=== PATIENT | male | born 1950 | race Caucasian/White ===

== ENCOUNTER 2019-06-05 09:16 | Outpatient (CLI) | payer MEDICARE, SELFPAY ==
--- NOTE | ~2019-06-05 | XR_ITS ---
XR abdomen/kub 1V DATE: 06/05/2019 09:43 INDICATION: Gross hematuria TECHNIQUE: AP projection, 2 views COMPARISON: 06/05/2019 CT abdomen pelvis FINDINGS: Calcified gallstones are noted overlying the right upper quadrant, confirmed on 06/15/2019 C T abdomen pelvis examination. The psoas shadows are intact. No visceromegaly is evident. No evidence of bowel obstruction. There is a moderately prominent of fecal material within the colon. Degenerative changes of the thoracic and lumbar spine. IMPRESSION: Calcified gallstones Reviewed, dictated and finalized at [facility]. Reviewed, dictated and finalized at location [facility]. IMPRESSION: Calcified gallstones
--- NOTE | ~2019-06-05 | CT_ITS ---
EXAMINATION: CT abdomen pelvis wo/w con DATE: 06/05/2019 10:11 INDICATION: Gross hematuria TECHNIQUE: Computed tomography (CT) of the abdomen and pelvis was performed without and subsequently with 130 cc Omnipaque 350 intravenous contrast. Automated exposure control and iterative reconstructi on technique were employed. Exam dose: 2305.83 mGy-cm total exam DLP. COMPARISON: 06/15/2019 KUB FINDINGS: Emphysematous changes are noted in the lower lung zones including prominent bullae in the r ight lower lobe. No infiltrate or consolidation at the lung bases. Normal heart size. No pericardial or pleural effusion. No hepatic, splenic, pancreatic space-occupying mass lesion. A very small left adrenal mass is sugges arminda, possibly a very small adenoma. At least a couple of small cysts are identified in each kidney. There are multiple calcified gallstones. No gallbladder wall thickening. No pericholecystic fluid or stranding. No bile duct or pancreatic duct dilatation. There are several small pancreatic calcificat ions, consistent with chronic pancreatitis. No urinary tract calculus or hydroureteronephrosis. Prostate enlargement and calcification. There is extensive calcification of the abdominal aorta and iliac arteries. No intraperitoneal or retroperitoneal or pelvic mass lesion or adenopathy or ascites. Diverticulosis of the colon. No bowel obstruction or intraperitoneal free air. There are bilateral L5 pars interarticularis defects with grade 1 anterolisthesis at L5-S1. There is moderately severe degenerative disc disease at L5-S1. Diffuse idiopathic skeletal hyperostosis of the lower thoracic spine. IMPRESSION: Emphysema Cholelithiasis Diverticulosis of the colon Small renal cysts Prostate enlargement and calcification Bilateral L5 pars interarticularis defects and grade 1 anterolisthesis as well as degenerative disc a t L5-S1 Reviewed, dictated and finalized at [facility]. Reviewed, dictated and finalized at location [facility]. IMPRESSION: Emphysema Cholelithiasis Diverticulosis of the colon Small renal cysts Prostate enlargement and calcification Bilateral L5 pars interarticularis defects and grade 1 anterolisthesis as well as degenerative disc at L5-S1
[2019-06-05 09:51] LABS: Estimated Glomerular Filt Rate > 60
== END 2019-06-05 09:17 | disposition home or self-care (01) ==
LOC: ANHIMG 09:17
PROVIDERS: PCP Family Medicine; Visit Provider Urology
DX: R31.0 Gross hematuria (principal); J43.9 Emphysema, unspecified; K80.20 Calculus of gallbladder without cholecystitis without obstruction; K57.90 Diverticulosis of intestine, part unspecified, without perforation or abscess without bleeding; N40.0 Benign prostatic hyperplasia without lower urinary tract symptoms; M43.10 Spondylolisthesis, site unspecified
CPT/HCPCS: 36415; 74018; 74178; Q9967

== ENCOUNTER 2020-09-23 08:44 | Outpatient (CLI) | payer MEDICARE, SELFPAY ==
--- NOTE | 2020-10-14 11:11 | WPDSLEEPSTUD ---
Sleep Study Date of Study: 09/23/20 Ordering Provider: Sigifredo Cuevas MD Interpreting Physician: Fransisca Wilder MD Sleep Study Type: Polysomnogram Height: 1.8 m Weight: 106.594 kg Body Mass Index: 32.8 Neck Circumference (inches): 19 [place]: 6 Reason for Sleep Study insomnia Sleep History Dottie Ruiz is a 70-year-old man who has difficulty falling asleep and staying asleep. This started around March,. In May, 4 days after his COVID vaccine he developed a head cold. Since then this has occurred almost nightly. About a week before this test, he started using a sleeping pill which helps himn get to sleep and stay asleep. he does not awaken from sleep feeling short of breath. He occasionally awakens at night with heartburn belching or coughing. He does not snore and does not snore loudly enough that others complain about it. He frequently has trouble sleeping when he has a cold. He does not wake up gasping for breath at night, does not have breathing problems reported to him by others while sleeping and he does not sweat excessively at night. He rarely notices his heart pounding or beating irregularly night. He frequently falls asleep during the day, frequently falls asleep involuntarily however never falls asleep while driving. He does not have loss of muscle tone with strong emotion. He does not have daytime difficulties due to excessive sleepiness. He does not feel paralyzed on waking or falling asleep. He rarely has vivid dreamlike scenes upon awakening or falling asleep. He does not feel afraid to go to sleep. He does not have nightmares. He occasionally remembers his dreams. He frequently has racing thoughts. He occasionally feels sad, depressed and anxious. He rarely has muscular tension. He rarely notices parts of his body jerking. He frequently kicks at night. He does not have crawling and aching feelings in his legs, does not have any kind of leg pain at night. He denies morning jaw pain. He does not grind his teeth during sleep. He did is not bothered by pain during the day. He is not awakened by pain at night. He occasionally wakes up feeling stiff the morning rarely with sore achy muscles and never awakens with pain in the neck and spine. He has fatigue. Normal bedtime is around midnight taking several hours to fall asleep typically waking 3 or 4 times during the night. During these awakenings sometimes he goes to the bathroom to urinate, otherwise he rolls over in tries to go back to sleep. He wakes between 7 and 8 in the morning. His weekend schedule is the same. He estimates getting between 6 and 7 hours of sleep at night he denies taking naps. A short nap is not refreshing. He is drowsy in the morning for 1 hour or longer. Habits: Tobacco less than 1 pack per day. Caffeine 2 diet Pepsi per day/diet green tea. No recreational drugs. [facility] Past Medical History Medical History BMI 33.0-33.9,adult BPH associated with nocturia Enlarged prostate without lower urinary tract symptoms (luts) Essential (primary) hypertension Hematuria Insomnia Mixed hyperlipidemia Type 2 diabetes mellitus without complications Family History Family History Father Family history of diabetes mellitus in first degree relative Family history of coronary artery disease Mother Family history of coronary artery disease Social History Social History Smoking end date: 03/29/16 Alcohol intake: current Medications Home Medications Medication Instructions Recorded Confirmed Type albuterol sulfate 90 mcg/actuation 2 puff INHALATION Q4H PRN #6.7 gm 02/08/19 09/17/20 Rx aerosol inhaler fluticasone fur. 100 mcg-umeclid 1 inhalation INHALATION DAILY #60 09/19/19 09/17/20 Rx 62.5 mcg-vilant 25 mcg each inhalat.powder finasteride
[2020-10-14 11:29] VITALS: BMI 32.8
== END 2020-09-24 06:38 | disposition home or self-care (01) ==
LOC: ANHCSM 08:45
PROVIDERS: PCP Family Medicine; Visit Provider Family Medicine
DX: G47.00 Insomnia, unspecified (principal); G47.33 Obstructive sleep apnea (adult) (pediatric)
CPT/HCPCS: 95806; 95810

== ENCOUNTER 2021-10-08 23:13 | Emergency (ER) | payer MEDICARE, SELFPAY ==
--- NOTE | ~2021-10-08 | XR_ITS ---
EXAMINATION: XR finger 5th LT min 2V DATE: 10/09/2021 01:14 INDICATION: Laceration of left hand fifth digit. TECHNIQUE: 3 views of left hand fifth digit were obtained. COMPARISON: None. FINDINGS: There is an oblique extra-articular fracture of fifth distal phalanx. The distal fracture f ragment demonstrates 1 mm palmar displacement. There is moderate osteoarthritis of fifth distal inter phalangeal joint. IMPRESSION: 1. Extra-articular oblique fracture of fifth distal phalanx. Reviewed, dictated and finalized at location [facility].
[2021-10-08 23:14] VITALS: BP 159/71; PULSE 81; RESP 16; TEMP 36.3; O2SAT 98
--- NOTE | 2021-10-09 01:07 | ED.WOUNDLAC ---
HPI - Wound/Laceration General Chief Complaint: Wound/Laceration Stated Complaint: laceration Time Seen by Provider: 10/09/21 00:29 Source: patient Mode of arrival: ambulatory Limitations: no limitations History of Present Illness HPI narrative: This is a 71-year-old male that presents to the emergency department for laceration of the left fifth finger sustained a couple of hours prior to arrival. Reports he was wearing a metal cabinet on a truck bed. He accidentally cut his left fifth finger. He is up-to-date on tetanus. Reports some tingling to the tip of the finger. Denies decreased range of motion or numbness. Related Data Allergies Allergy/AdvReac Type Severity Reaction Status Date / Time No Known Allergies Allergy Verified 07/24/21 07:43 Review of Systems Review of Systems: CONSTITUTIONAL: Denies fever SKIN: Reports laceration NEUROLOGIC: Denies numbness All systems reviewed & are unremarkable except as noted in HPI and below PMFSH Past Medical History Medical History (Updated 10/09/21 @ 02:45 by Briana Umana PA-C) BMI 29.0-29.9,adult BMI 32.0-32.9,adult BMI 33.0-33.9,adult BMI greater than 30 BPH associated with nocturia Enlarged prostate without lower urinary tract symptoms (luts) Erectile dysfunction Essential (primary) hypertension Hematuria Insomnia Mixed hyperlipidemia Type 2 diabetes mellitus without complications Family History Family History Father Family history of diabetes mellitus in first degree relative Family history of coronary artery disease Mother Family history of coronary artery disease Social History Social History Tobacco type: cigarettes Smoking end date: 03/29/16 Alcohol intake: current Exam Narrative: GENERAL: Well-appearing, well-nourished, and in no acute distress. HEAD: Normocephalic, atraumatic. EYES: EOMI. EXTREMITIES: Normal range of motion. No edema. Left fifth finger distal phalanx with 2 cm linear laceration into subcutaneous tissue over the palmar surface. Normal radial pulse SKIN: Warm, dry, no rash. NEURO: No focal deficits. Alert and oriented x3. PSYCH: Normal mood and affect Course Consultations Consultation #1: Spoke with Dr. Rosa about patient and workup, [facility] hand surgery. Patient will be given clinic number for follow-up Date: 10/09/21 Vital Signs Vital signs: Vital Signs Temperature 97.4 F L 10/08/21 23:14 Pulse Rate 81 10/08/21 23:14 Respiratory Rate 16 10/08/21 23:14 Blood Pressure 159/71 H 10/08/21 23:14 Pulse Oximetry 98 10/08/21 23:14 Temperature 97.4 F L 10/08/21 23:14 Pulse Rate 81 10/08/21 23:14 Respiratory Rate 16 10/08/21 23:14 Blood Pressure 159/71 H 10/08/21 23:14 Pulse Oximetry 98 10/08/21 23:14 Procedures Laceration Laceration 1: Date: 10/09/21 Time: 02:50 Site: hand Side (If applicable): left Size (cm): 2 Description: linear Depth: simple, single layer Local Anesthetic: lidocaine 1% Amount of anesthesia used (mL): 3 Pre-repair: wound explored and irrigated extensively ====== Skin Level ====== Skin layer closed with: nylon Size (cm): 4-0 Number of sutures: 5 Technique: simple, interrupted ====== Subcutaneous Layer ====== ====== Muscle Layer ====== ====== Tendon Layer ====== Orthopedic Splinting/Casting Injury #1: Splinting/Casting Date: 10/09/21 Splinting/Casting Time: 02:50 Side: left Upper Extremity Injury Location: finger Upper Extremity Immobilizer: finger (other) Splint: prefabricated Pre-Formed: metal foam finger splint Pre-Procedure Neuro Vascular Exam: normal Post-Procedure Neuro Vascular Exam: normal MDM - Wound/Laceration MDM Narrative Medical decision making narrative:
--- NOTE | 2021-10-09 03:27 | PC.NURSE ---
This RN never seen this patient because this RN was in a critical patients room and because of short staffing situation making it hard to see this patient.
--- NOTE | 2021-10-09 03:33 | PC.NURSE ---
THis RN gave discharge instructions to patient over the phone. Patient verbalized understanding of all discharge instructions and had all questions answered at this time.
== END 2021-10-09 03:30 | disposition home or self-care (01) ==
PROVIDERS: Emergency Provider Emergency Medicine; PCP Family Medicine
DX: S62.667B Nondisplaced fracture of distal phalanx of left little finger, initial encounter for open fracture (principal); I10 Essential (primary) hypertension; E78.2 Mixed hyperlipidemia; E11.9 Type 2 diabetes mellitus without complications; Z87.891 Personal history of nicotine dependence; W45.8XXA Other foreign body or object entering through skin, initial encounter
CPT/HCPCS: 12001; 29130; 73140; 99284

== ENCOUNTER 2023-06-14 10:09 | Outpatient (CLI) | payer MEDICARE, SELFPAY ==
--- NOTE | ~2023-06-14 | XR_ITS ---
Right Shoulder Technique: AP and scapular Y views were obtained. Clinical History: Pain Findings: No fracture or dislocation is seen. Osseous alignment is anatomic. There is moderate to adv anced AC joint degenerative change. Glenohumeral joint intact. Large calcific deposit the distal rota tor cuff is compatible with calcific tendinitis. Impression: Prominent calcific tendinitis, as above. Moderate to advanced AC joint degenerative change. Reviewed, dictated and finalized at location . Impression: Prominent calcific tendinitis, as above. Moderate to advanced AC joint degenerative change.
== END 2023-06-14 10:10 | disposition home or self-care (01) ==
PROVIDERS: PCP Family Medicine; Visit Provider Nurse Practitioner Adult Health
DX: M19.011 Primary osteoarthritis, right shoulder (principal)
CPT/HCPCS: 73030

== ENCOUNTER 2023-06-24 16:30 | Outpatient (CLI) | payer MEDICARE, SELFPAY ==
--- NOTE | ~2023-06-24 | MR_ITS ---
EXAMINATION: MR shoulder RT wo con DATE: 06/24/2023 17:54 INDICATION: Other instability, right shoulder. TECHNIQUE: Magnetic resonance imaging (MRI) of the right shoulder was performed without intravenous c ontrast. Sequences included axial PD-weighted FS FSE, coronal oblique PD-weighted FS FSE and T2-weigh arminda FS FSE, and sagittal oblique T2-weighted FS FSE and T1-weighted FSE. COMPARISON: Right shoulder radiographs 06/14/2023 FINDINGS: Coracoacromial arch: The acromion undersurface is curved in morphology (type II). There is severe acromioclavicular joint osteoarthritis. There is moderate subacromial/subdeltoid bursitis. Rotator cuff: There is a bursal-sided tear of supraspinatus tendon measuring 12 mm anterior to posterior by 21 mm a nterior to posterior by 50% tendon thickness. There is mild infraspinatus tendinopathy. Teres minor t endon is normal. There is mild subscapularis tendinopathy. There is no asymmetric fatty atrophy of th e rotator cuff muscle bellies. Biceps tendon and glenoid labrum: Biceps tendon is in bicipital groove. There is moderate intraarticular biceps tendinopathy. There is degenerative tearing of the glenoid labrum. Fluid: There is no glenohumeral joint effusion. Bones/cartilage: There is shallow partial-thickness cartilage loss of glenoid and humeral head. IMPRESSION: 1. Bursal-sided, partial-thickness tear of supraspinatus tendon. 2. Mild glenohumeral joint chondrosis. 3. Severe acromioclavicular joint osteoarthritis. 4. Moderate intra-articular biceps tendinopathy. 5. Moderate subacromial/subdeltoid bursitis. Reviewed, dictated and finalized at location A.
== END 2023-06-24 16:31 | disposition home or self-care (01) ==
LOC: ANHIMG 16:30
PROVIDERS: PCP Family Medicine; Visit Provider Nurse Practitioner Adult Health
DX: M25.311 Other instability, right shoulder (principal); S46.811A Strain of other muscles, fascia and tendons at shoulder and upper arm level, right arm, initial encounter; M94.8X1 Other specified disorders of cartilage, shoulder; M75.51 Bursitis of right shoulder; M19.011 Primary osteoarthritis, right shoulder
CPT/HCPCS: 73221

== ENCOUNTER 2023-09-24 07:36 | Outpatient (CLI) | payer MEDICARE, SELFPAY ==
--- NOTE | ~2023-09-24 | CT_ITS ---
EXAMINATION: CT sinus wo con DATE: 09/24/2023 08:01 INDICATION: Epistaxis. TECHNIQUE: Computed tomography (CT) of the paranasal sinuses was performed without intravenous contra st. Iterative reconstruction technique was employed. The dose-length product was 287.87 mGy-cm. COMPARISON: None FINDINGS: There is mucosal thickening in the frontal sinuses with total occlusion of the frontal rece sses. There is moderate mucosal thickening in the ethmoid sinuses and mild mucosal thickening in the sphenoid and right maxillary sinuses. There is moderate mucosal thickening in left maxillary sinus. T here is leftward deviation of anterior nasal septum and rightward deviation of posterior nasal septum . Left ostiomeatal unit is occluded. A thin line of mucus occludes right ostiomeatal unit. There is a patent secondary right maxillary ostium. IMPRESSION: 1. Mucosal thickening in the paranasal sinuses. 2. Leftward deviation of anterior nasal septum and rightward deviation of posterior nasal septum. Reviewed, dictated and finalized at location A. IMPRESSION: 1. Mucosal thickening in the paranasal sinuses. 2. Leftward deviation of anterior nasal septum and rightward deviation of poste rior nasal septum.
== END 2023-09-24 07:37 | disposition home or self-care (01) ==
PROVIDERS: PCP Family Medicine; Visit Provider Otolaryngology
DX: R04.0 Epistaxis (principal); J34.2 Deviated nasal septum
CPT/HCPCS: 70486

== ENCOUNTER 2023-10-26 17:02 | Emergency (ER) | payer MEDICARE, SELFPAY ==
--- NOTE | ~2023-10-26 | XR_ITS ---
EXAMINATION: XR chest 1V portable DATE: 10/26/2023 19:48 INDICATION: Epigastric discomfort TECHNIQUE: frontal view of the chest was obtained. COMPARISON: Chest radiograph dated 12/16/2015 FINDINGS: The lungs remain clear with no focal airspace opacities, pulmonary edema, pleural effusion or pneumot horax. The cardiomediastinal silhouette is normal. IMPRESSION: 1. No acute cardiopulmonary disease. Reviewed, dictated and finalized at location A.
--- NOTE | ~2023-10-26 | CT_ITS ---
EXAMINATION: CT abdomen pelvis w con DATE: 10/26/2023 20:36 INDICATION: Dyspnea. Nausea, vomiting and diarrhea. TECHNIQUE: Computed tomography (CT) of the abdomen and pelvis was performed with 100 mL Omnipaque-350 intravenous contrast. Automated exposure control and iterative reconstruction technique were employe d. The dose-length product was 727.75 mGy-cm. COMPARISON: 06/15/2019 FINDINGS: Emphysema in the lower lungs most prominent in the right lower lobe. No pneumonia, pulmonary edema or pleural effusion. Heart size is normal. No pericardial effusion. Calcified gallstones in the otherwi se normal-appearing gallbladder. Liver, spleen, pancreas and bilateral adrenal glands are normal. The re are few tiny bilateral low-attenuation renal cysts. Fluid in nondilated loops of small bowel and i n the proximal colon consistent with reported history of diarrhea. No abnormal bowel wall thickening or obstruction. Normal appendix. There are few sigmoid diverticula without adjacent inflammatory stra nding to suggest diverticulitis. Prostatomegaly measuring 6.0 x 5.8 cm . Partially decompressed bladd er is unremarkable. There are least disease with multiple small calcific a cyst along the penile fasc ia. Small bilateral fat-containing inguinal hernias. No free intraperitoneal gas or fluid. No patholo gically enlarged abdominal or pelvic lymphadenopathy. There is calcified atherosclerosis of the aorta and many of the other arteries. L5 spondylolysis with bilateral pars intra-articular is defects and 5 mm anterolisthesis L5 on S1. IMPRESSION: 1. Fluid in the small bowel and proximal colon consistent with reported history of diarrhea. No other acute intra-abdominal/pelvic process. 2. Cholelithiasis. 3. Emphysema. 4. Prostatomegaly. 5. Small bilateral fat-containing inguinal hernias. Reviewed, dictated and finalized at location A.
[2023-10-26 17:09] VITALS: BP 100/63; PULSE 100; RESP 16; TEMP 36.3; O2SAT 94
--- NOTE | 2023-10-26 19:26 | ECG_ITS ---
Test Date: 2023-10-26 19:41:59 Measurements Intervals [place] Rate: 88 P: 53 IN: 179 QRS: 70 QRSD: 88 T: 77 QT: 329 QTc: 400 Interpretive Statements SINUS RHYTHM WITH SINUS ARRHYTHMIA CANNOT R/O SEPTAL INFARCT, AGE INDETERMINATE BORDERLINE ST-T WAVE ABNORMALITY- HIGH LATERAL LEADS BASELINE ARTIFACT- I, III, AVR, AVL, AVF, V1-V2, V4-V6 BORDERLINE ECG No previous ECG available for comparison Electronically Signed On 10-26-2023 20:00:22 CDT by Trevor Snell D.O.
--- NOTE | 2023-10-26 19:26 | ED.NAVMDI ---
HPI - Nausea/Vomiting/Diarrhea General Chief complaint: Abdominal Pain Stated complaint: nausea, sweats, fatigue, abd tightness Time Seen by Provider: 10/26/23 19:02 Source: patient and family Limitations: no limitations History of Present Illness HPI Narrative: Patient is a 73-year-old male presents to the emergency department complaining of nausea vomiting and diarrhea. Patient was started around approximately 3:00 p.m. with the onset of nausea and vomiting she had 2 episodes of nonbloody nonbilious emesis while also having 2 episodes of diarrhea that were nonbloody and nonmelanotic and also at that time he was experiencing chills and lightheadedness and some epigastric tightness discomfort. Patient came to the emergency department is since had 5 further episodes of nonbloody diarrhea. Patient notes that the epigastric tightness is gone away. Patient denies anyone having similar symptoms around him. Patient denies any recent injuries, sick contacts, recent antibiotic use, recent hospitalizations, recent travel, chest pain, difficulty breathing, fever, rash, urinary discomfort, numbness, weakness. Patient admits to a chronic cough. Patient denies any abnormal food consumption. Related Data Allergies Allergy/AdvReac Type Severity Reaction Status Date / Time No Known Allergies Allergy Verified 10/26/23 17:17 Review of Systems Review of Systems: A 10 system review of systems was completed on the patient and is negative except for what is stated in the HPI. Nursing and ancillary documentation was reviewed. [facility] Past Medical History Medical History AC (acromioclavicular) joint arthritis BMI 29.0-29.9,adult BMI 30.0-30.9,adult BMI 32.0-32.9,adult BMI 33.0-33.9,adult BMI greater than 30 BPH associated with nocturia COPD (chronic obstructive pulmonary disease) Diabetes mellitus with microalbuminuria, without long-term current use of insulin Enlarged prostate Enlarged prostate without lower urinary tract symptoms (luts) Erectile dysfunction Essential (primary) hypertension Fatigue Hematuria Insomnia Mixed hyperlipidemia Nasal polyp Rotator cuff insufficiency of right shoulder Shoulder pain, right Supraspinatus tendon tear Type 2 diabetes mellitus without complications Surgical History Surgical History Hx of colonoscopy Family History Family History Father Family history of diabetes mellitus in first degree relative Family history of coronary artery disease Diabetes mellitus Mother Family history of coronary artery disease Pneumonia Sibling No problems noted. Social History Social History Smoking packs per day: 0.5 Smoking cigarettes per day: 10.0 Smoking status: Current every day smoker Tobacco type: cigarettes Second hand tobacco smoke exposure: No Alcohol intake: current Substance use: never Substance use type: does not use Do You Feel Safe in your Home?: Yes Lack of Transportation: No Lack of Food: Never True Current Housing: I Have Housing Concerned About Future Housing: No Difficulty Paying Gas/Electric Bills: No Difficulty Paying for Meds: No Currently Unemployed: No Education: High School Diploma/GED Difficulty w/ Childcare or Family Care: No Living arrangements: with family Occupation/Education: retired 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 Please see the nursing chart for further information. There is no relevant family history pertinent to the presenting complaint. Exam Narrative: CONST:
[2023-10-26 19:46] LABS: Basophils Absolute Auto 0.1 K/mm3 (0.0-0.1); Basophils Percent Auto 0.5 % (0.2-1.2); Eosinophils Absolute Auto 0.2 K/mm3 (0-0.3); Eosinophils Percent Auto 0.9 % (0-4.4); Hematocrit 53.5 % (42.0-52.0); Hemoglobin 17.6 g/dL (14.0-18.0); Immature Granulocyte Absolute 0.09 K/mm3 (0.00-0.031); Immature Granulocyte Percent A 0.5 % (0-0.5); Lymphocytes Absolute Auto 0.51 K/mm3 (0.9-3.2); Lymphocytes Percent Auto 3.1 % (18.3-44.2); Mean Corpuscular HGB Conc 32.9 g/dl (32-36); Mean Corpuscular Hemoglobin 30.9 pg (26-34); Mean Platelet Volume 8.8 fl (7.4-10.4); Monocytes Absolute Auto 1.4 K/mm3 (0.1-0.6); Monocytes Percent Auto 8.2 % (2.6-8.5); Neutrophils Absolute Auto 14.2 K/mm3 (1.3-6.7); Neutrophils Percent Auto 86.8 % (45.5-73.1); Platelet Count Result 181 k/mm3 (150-375); Red Blood Count 5.69 M/mm3 (4.6-6.20); Red Cell Distribution Width 13.3 % (11.5-14.5); White Blood Count 16.4 K/mm3 (4.5-10.0)
[2023-10-26 19:52] VITALS: BP 118/93; PULSE 94; RESP 24; O2SAT 96
[2023-10-26] MEDS: ONDANSETRON INJ 4 MG/2 ML VIAL IV PUSH (19:55)
[2023-10-26] MEDS: SODIUM CHLORIDE 0.9% IV 1,000 ML 999 ML IV CONT ×2 (19:55→20:04)
[2023-10-26] MEDS: FAMOTIDINE 20 MG/2 ML VIAL IV PUSH (19:55)
[2023-10-26 19:57] LABS: Alanine Aminotransferase 17 U/L (6-50); Albumin Level 4.6 g/dL (3.5-5.1); Alkaline Phosphatase 64 U/L (38-126); Anion Gap 11 mmol/L (4-12); Aspartate Amino Transferase 29 U/L (17-59); Bilirubin,Total 0.7 mg/dL (0.2-1.3); Blood Urea Nitrogen 32 mg/dL (9-20); Calcium 9.3 mg/dL (8.4-10.2); Carbon Dioxide 30 mmol/L (22-30); Chloride 96 mmol/L (98-107); Estimated CRCL calculation 48 ml/min; Estimated Glomerular Filt Rate 46; Glucose 145 mg/dL (65-110); Lipase 43 U/L (23-300); Potassium 4.6 mmol/L (3.4-5.0); Sodium 137 mmol/L (137-145)
[2023-10-26 19:58] LABS: Lactic Acid Reflex 1.5 mmol/L (0.7-2.0)
[2023-10-26 20:01] VITALS: BP 96/71; PULSE 93; RESP 12; O2SAT 96
[2023-10-26 20:09] LABS: Troponin I < 0.012 ng/mL (0.000-0.034)
[2023-10-26 20:16] VITALS: BP 118/58; PULSE 92; RESP 21; O2SAT 96
[2023-10-26 20:22] LABS: Influenza A QL RT-PCR Negative (Negative); Influenza B QL RT-PCR Negative (Negative); RSV RNA, RT-PCR Negative (Negative); SARS-CoV-2 RNA PCR Negative (Negative)
[2023-10-26 20:54] LABS: Add Urine Microscopic? YES
[2023-10-26 20:55] LABS: WBC Urine 0-3 /hpf (0-3)
[2023-10-26 20:56] LABS: Calcium Oxalate Crystals Urine Present /hpf; Squamous Epithelial Cell Urine None seen /hpf (Few)
[2023-10-26 20:57] LABS: Appearance Urine Sl Cloudy (Clear); Bacteria Urine Trace /hpf; Color Urine Yellow (Yellow); Hyaline Casts Urine 0-2 /lpf; pH Urine 5.5 (5.0-9.0)
[2023-10-26 20:58] LABS: Bilirubin Urine 1+ (Negative); Blood Urine 3+ (Negative); Glucose Urine UA 2+ mg/dL (Negative); Ketones Urine Negative (Negative); Leukocyte Esterase Ur Negative LEU/UL (Negative); Nitrate Urine Negative (Negative); Protein Urine 3+ mg/dL (Negative); Specific Grav Ur >= 1.030 (1.001-1.035)
[2023-10-26] MEDS: LOPERAMIDE HCL 2 MG CAPSULE 4 MG PO (21:42)
[2023-10-26 22:00] VITALS: BP 123/76; PULSE 91; RESP 21; O2SAT 93
== END 2023-10-26 22:21 | disposition home or self-care (01) ==
PROVIDERS: Emergency Provider Student in an Organized Health Care Education/Training Program; PCP Family Medicine
DX: K52.9 Noninfective gastroenteritis and colitis, unspecified (principal); N17.9 Acute kidney failure, unspecified; Z20.822 Contact with and (suspected) exposure to COVID-19; I10 Essential (primary) hypertension; J44.9 Chronic obstructive pulmonary disease, unspecified; E11.9 Type 2 diabetes mellitus without complications; E78.2 Mixed hyperlipidemia; N40.0 Benign prostatic hyperplasia without lower urinary tract symptoms; M19.019 Primary osteoarthritis, unspecified shoulder; F17.210 Nicotine dependence, cigarettes, uncomplicated; Z79.84 Long term (current) use of oral hypoglycemic drugs; Z79.899 Other long term (current) drug therapy; K80.20 Calculus of gallbladder without cholecystitis without obstruction; J43.9 Emphysema, unspecified; K40.20 Bilateral inguinal hernia, without obstruction or gangrene, not specified as recurrent
CPT/HCPCS: 36415; 71045; 74177; 80053; 81001; 83605; 83690; 83735; 84484; 85025; 87637; 93005; 96361; 96374; 96375; 99284; A9270; J2405; J7030; Q9967

== ENCOUNTER 2024-02-29 01:21 | Day surgery (SDC) | payer MEDICARE, SELFPAY ==
[2024-02-08 14:56] VITALS: BMI 30.4
[2024-02-29 06:44] VITALS: BP 152/63; PULSE 59; RESP 18; TEMP 36.4; O2SAT 94
[2024-02-29] MEDS: LACTATED RINGERS 1,000 ML 150 ML IV CONT (06:54)
[2024-02-29 07:11] LABS: Glucose Point of Care 100 mg/dl (65-105)
--- NOTE | 2024-02-29 07:56 | WPDANESEPPF ---
Anes - Initial Pre Proc Eval Procedure: Operation Date: 02/29/24 08:00 Proposed Procedures p Colonoscopy - Esdras Fritz MD Date/Time: 02/29/24 07:56 Surgeon: Esdras Fritz MD Pre Op Diagnosis: Personal history colon polyps Patient Data Age: 73 Gender: M Height: 1.78 m Weight: 96.36 kg Last Vital Signs Temp 97.6 F 02/29/24 06:44 Pulse 59 L 02/29/24 06:44 Resp 18 02/29/24 06:44 BP 152/63 H 02/29/24 06:44 Pulse Ox 94 02/29/24 06:44 O2 Del Method Room Air 02/29/24 06:44 Allergies Allergy/AdvReac Type Severity Reaction Status Date / Time No Known Allergies Allergy Verified 02/29/24 06:43 Home Medications Medication Instructions Recorded Confirmed Type fluticasone fur. 100 mcg-umeclid 1 inh inhalation DAILY #180 ea 01/11/23 02/29/24 Rx 62.5 mcg-vilant 25 mcg inhalat.powder (Trelegy Ellipta) rosuvastatin 20 mg tablet See Rx Instructions .Route 05/24/23 02/29/24 Rx .COMPLEX #90 tabs dapagliflozin propanediol 10 mg 10 mg PO QAM #90 tabs 09/06/23 02/29/24 Rx tablet (Farxiga) metformin 500 mg tablet,extended 500 mg PO .5PM #90 tabs 09/28/23 02/29/24 Rx release 24 hr trazodone 100 mg tablet 100 mg PO .qhs #30 tabs 01/07/24 02/29/24 Rx lisinopril 20 See Rx Instructions .Route 01/20/24 02/29/24 Rx mg-hydrochlorothiazide 25 mg tablet .COMPLEX #90 tabs Laboratory Tests 02/29/24 06:49 POC Capillary Glucose 100 mg/dl (65-105) Patient hx anesthesia problems: none Family hx anesthesia problems: none Results Review: All pre-operative results and documents have been reviewed as part of the pre-operative evaluation. [facility] Past Medical History Medical History AC (acromioclavicular) joint arthritis BMI greater than 30 BPH associated with nocturia COPD (chronic obstructive pulmonary disease) Diabetes mellitus with microalbuminuria, without long-term current use of insulin Enlarged prostate Enlarged prostate without lower urinary tract symptoms (luts) Erectile dysfunction Essential (primary) hypertension Fatigue Hematuria Insomnia Mixed hyperlipidemia Nasal polyp Rotator cuff insufficiency of right shoulder Shoulder pain, right Supraspinatus tendon tear Type 2 diabetes mellitus without complications Surgical History Surgical History Hx of colonoscopy Family History Family History Father Family history of diabetes mellitus in first degree relative Family history of coronary artery disease Diabetes mellitus Mother Family history of coronary artery disease Pneumonia Sibling No problems noted. Social History Social History Smoking packs per day: 0.5 Smoking cigarettes per day: 10.0 Years smoked: 40 Smoking pack-years: 20.00 Smoking status: Current every day smoker Tobacco type: cigarettes Second hand tobacco smoke exposure: No Alcohol intake: current Alcohol use details: monthly maybe Substance use: never Substance use type: does not use Do You Feel Safe in your Home?: Yes Lack of Transportation: No Lack of Food: Never True Current Housing: I Have Housing Concerned About Future Housing: No Difficulty Paying Gas/Electric Bills: No Difficulty Paying for Meds: No Currently Unemployed: No Education: High School Diploma/GED Difficulty w/ Childcare or Family Care: No Living arrangements: with family 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 HTN, hyperlipidemia, DM. Informed Consent: The patient's anesthetic plan and its attendant risks and benefits were discussed with the patient/family/POA. Questions were solicited and answers provided to the satisfaction of the patient/family/POA.
--- NOTE | 2024-02-29 07:57 | PM.IMHP ---
H&P: HPI History of Present Illness Date/Time: 02/29/24 07:57 Chief Complaint: History of colon polyps Narrative: The patient has a history of colonic polyps, the last colonoscopy was 5 years ago. There is no family history of colorectal cancer. The patient is asymptomatic from a GI standpoint. Review of Systems Review of Systems: All systems reviewed & are unremarkable except as noted in HPI and below PMFSH Past Medical History Medical History AC (acromioclavicular) joint arthritis BMI greater than 30 BPH associated with nocturia COPD (chronic obstructive pulmonary disease) Diabetes mellitus with microalbuminuria, without long-term current use of insulin Enlarged prostate Enlarged prostate without lower urinary tract symptoms (luts) Erectile dysfunction Essential (primary) hypertension Fatigue Hematuria Insomnia Mixed hyperlipidemia Nasal polyp Rotator cuff insufficiency of right shoulder Shoulder pain, right Supraspinatus tendon tear Type 2 diabetes mellitus without complications Surgical History Surgical History Hx of colonoscopy Family History Family History Father Family history of diabetes mellitus in first degree relative Family history of coronary artery disease Diabetes mellitus Mother Family history of coronary artery disease Pneumonia Sibling No problems noted. Social History Social History Smoking packs per day: 0.5 Smoking cigarettes per day: 10.0 Years smoked: 40 Smoking pack-years: 20.00 Smoking status: Current every day smoker Tobacco type: cigarettes Second hand tobacco smoke exposure: No Alcohol intake: current Alcohol use details: monthly maybe Substance use: never Substance use type: does not use Do You Feel Safe in your Home?: Yes Lack of Transportation: No Lack of Food: Never True Current Housing: I Have Housing Concerned About Future Housing: No Difficulty Paying Gas/Electric Bills: No Difficulty Paying for Meds: No Currently Unemployed: No Education: High School Diploma/GED Difficulty w/ Childcare or Family Care: No Living arrangements: with family 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 100 mcg-umeclid 1 inh inhalation DAILY #180 ea 01/11/23 02/29/24 Rx 62.5 mcg-vilant 25 mcg inhalat.powder (Trelegy Ellipta) rosuvastatin 20 mg tablet See Rx Instructions .Route 05/24/23 02/29/24 Rx .COMPLEX #90 tabs dapagliflozin propanediol 10 mg 10 mg PO QAM #90 tabs 09/06/23 02/29/24 Rx tablet (Farxiga) metformin 500 mg tablet,extended 500 mg PO .5PM #90 tabs 09/28/23 02/29/24 Rx release 24 hr trazodone 100 mg tablet 100 mg PO .qhs #30 tabs 01/07/24 02/29/24 Rx lisinopril 20 See Rx Instructions .Route 01/20/24 02/29/24 Rx mg-hydrochlorothiazide 25 mg tablet .COMPLEX #90 tabs Allergies Allergy/AdvReac Type Severity Reaction Status Date / Time No Known Allergies Allergy Verified 02/29/24 06:43 Vital Signs Vital Signs - 24 hr 02/29/24 06:44 Temperature 97.6 F Pulse Rate 59 L Respiratory Rate 18 Blood Pressure 152/63 H Pulse Oximetry 94 Oxygen Delivery Room Air Exam Const: General: cooperative and healthy appearing Resp: Effort & Inspection: normal respiratory effort and able to speak in complete sentences Auscultation: clear to auscultation bilaterally Cardio: Rate: regular rate Rhythm: regular rhythm GI: Inspection: normal to inspection GI Palp: No No hepatosplenomegaly present Auscultation: normal bowel sounds Rectal Exam: deferred Skin: General skin exam: normal color Psych: Appearance: grossly normal Mental Status: mental status grossly normal Assessment and Plan Assessment and plan (1) History of colonic polyps: Code(s): Z86.0100 - Personal history of colon polyps, unspecified Status: Acute Assessment and Plan: The patient is deemed a good candidate for the procedure. Consent signed. Will proceed.
[2024-02-29] MEDS: SIMETHICONE ORAL SUSPENSION 20 MG/0.3 ML 30 ML BOTTLE 0.6 ML IRRIGATION (08:14)
[2024-02-29 08:29] VITALS: BP 102/62; PULSE 76; RESP 22; O2SAT 95
[2024-02-29 08:39] VITALS: BP 115/64; PULSE 66; RESP 23; O2SAT 100
[2024-02-29 08:49] VITALS: BP 120/75; PULSE 64; RESP 21; O2SAT 100
== END 2024-02-29 08:57 | disposition home or self-care (01) ==
PROVIDERS: PCP Family Medicine; Visit Provider Internal Medicine Gastroenterology
PROC: 0DJD8ZZ Inspection of Lower Intestinal Tract, Via Natural or Artificial Opening Endoscopic (ICD-10-PCS; CPT 45378; principal; 2024-02-29 08:00)
DX: Z12.11 Encounter for screening for malignant neoplasm of colon (principal); D12.2 Benign neoplasm of ascending colon; D12.5 Benign neoplasm of sigmoid colon; N40.0 Benign prostatic hyperplasia without lower urinary tract symptoms; E11.9 Type 2 diabetes mellitus without complications; I10 Essential (primary) hypertension; E78.2 Mixed hyperlipidemia; J44.9 Chronic obstructive pulmonary disease, unspecified; N52.9 Male erectile dysfunction, unspecified; G47.00 Insomnia, unspecified; M19.019 Primary osteoarthritis, unspecified shoulder; R80.9 Proteinuria, unspecified; F17.210 Nicotine dependence, cigarettes, uncomplicated; E66.9 Obesity, unspecified; Z68.30 Body mass index [BMI] 30.0-30.9, adult; Z79.82 Long term (current) use of aspirin; Z79.84 Long term (current) use of oral hypoglycemic drugs; Z82.49 Family history of ischemic heart disease and other diseases of the circulatory system
CPT/HCPCS: 45385; 82948; 88305; J2003; J2704; J7120

== ENCOUNTER 2024-11-07 11:33 | Outpatient (CLI) | payer MEDICARE, SELFPAY ==
--- NOTE | ~2024-11-07 | XR_ITS ---
XR chest 2V 11/07/2024 11:50 Indication: Shortness of breath and chest pressure Procedure: 2 view chest Comparison: 12/16/2015 Findings: Heart size normal. No focal air space disease, pulmonary edema, pleural effusion or suspect ed pneumothorax. Impression: 1: No acute cardiopulmonary disease. Reviewed, dictated and finalized at location A. Impression: 1: No acute cardiopulmonary disease.
--- OUTSIDE RECORDS SUMMARY | 2024-11-07 12:21 | XMS_ITS | Clinical Summary ---
Author Organization [facility] [employer] Address [address] [place] [address] Care Team Providers Care Blacksmith Apprentice Name Role Phone Sigifredo Cuevas MD Primary Care Provider [phone] [facility] [employer],non-owned Affiliates and Associated Physician Practices is amultiple site organization consisting of ambulatory clinics and hospital sitesin [place], [place], [place] and [place]. This disclosure is being madepursuant to the Care Everywhere program and may not contain all information available regarding this patient. Last updated [employer] Allergies No known active allergies Medications * Be aware that medications may not be up to date on this document. Alwaysverify current medications with the patient. finasteride (PROSCAR) 5 MG tablet Take 5 mg by mouth once daily 2 Active TRELEGY ELLIPTA 100-62.5-25 MCG/INH INHALE 1 PUFF BY MOUTH ONCE DAILY 2 Active lisinopril-hydr oCHLOROthiazide (PRINZIDE; ZESTORETIC) 20-25 MG tablet Take 1 tablet by mouth once daily 2 Active metFORMIN ER 24hr (GLUCOPHAGE XR) 500 MG tablet TAKE 2 TABLETS BY MOUTH EVERY DAY AT 5PM 2 Active rosuvastatin (CRESTOR) 20 MG tablet Take 20 mg by mouth once daily 2 Active sildenafil (VIAGRA) 100 MG tablet TAKE 1 TABLET BY MOUTH ONCE DAILY NEEDED FOR SEXUAL ACTIVITY. ADMINISTER 30 MINUTES TO 4 HOURS BEFORE ACTIVITY 2 Active traZODone (DESYREL) 50 MG tablet TAKE 1 TABLET BY MOUTH EVERYDAY AT BEDTIME 2 Active Social History Tobacco Use Types Packs/Day Years Used Date Smoking Tobacco: Every Day Cigarettes Smokeless Tobacco: Never Alcohol Use Standard Drinks/Week Comments Yes 0 (1 standard drink = 0.6 oz pur e alcohol) social Sex and Gender Information Value Date Recorded Sex Assigned at Not on file Legal Sex Male 12:31 PM CDT Gender Identity Not on file Sexual Orientation Not on file Last Filed Vital Signs Vital Sign Reading Time Taken Comments Blood Pressure 118/66 10/22/2021 9:49 AM CDT Pulse 66 10/22/2021 9:49 AM CDT Temperature 36.6 C (97.9 F) 10/22/2021 9:49 AM CDT Respiratory Rate 18 10/22/2021 9:49 AM CDT Oxygen Saturation 95% 10/22/2021 9:49 AM CDT Inhaled Oxygen Concentration - - Weight 90.3 kg (199 lb) 10/22/2021 9:49 AM CDT Height 177.8 cm (5' 10) 10/22/2021 9:49 AM CDT Body Mass Index 28.55 10/22/2021 9:49 AM CDT Plan of Treatment Health Maintenance Due Date Last Done Comments COLOGUARD (AGES 45-75) - COL ON CA SCREENING 1952 COLON MONITORING 1952 COLONOSCOPY - COLON CA SCREENING 1952 CT COLONOGRAPHY - COLON CA SCREENING 1952 Colorectal Cancer Screening 1952 FIT - COLON CA SCREENING 1952 FLEX SIG - COLON CA SCREENING 1952 MEDICARE AWV 12 MONTHS 1952 HEPATITIS C SCREENING 05/31/1970 DTAP/TDAP/TD VACCINES (1 - Tdap) 06/05/1971 PNEUMOCOCCAL VACCINE 50+ (1 of 2 - PCV) 06/05/1971 ZOSTER VACCINE (1 of 2) 2002 AAA SCREENING 2017 SCREENING FOR DIABETES 10/22/2021 COVID-19 VACCINE (1 - 2023-2 5 season) 2023 DEPRESSION SCREENING 03/29/2024 INFLUENZA VACCINE (#1) 2024 Respiratory Syncytial Virus (RSV) Vaccine Pt: or over 60 yrs (1 - 1-dose 75+ series) 06/05/2027 HEPATITIS B VACCINE Aged Out No longe r eligible based on patient's age to complete this topic HIB VACCINE Aged Out No longer eligi ble based on patient's age to complete this topic HPV VACCINE Aged Out No longer eligi ble based on patient's age to complete this topic MENINGOCOCCAL (Group B) VACC INE SHARED DECISION-MAKING Aged Out No longer eligibl e based on patient's age to complete this topic MENINGOCOCCAL GROUPS A/C/Y/W VACCINE Aged Out No longer eligible b ased on patient's age to complete this topic Insurance MEDICARE AETNA AETNA MEDICARE MEDICARE MEDICARE SUPPLEMENT PAYOR GENERIC SELF PAY NO INSURANCE Member Subscriber Plan / Payer (Ef fective for All Dates) Name:Aries Paz Member ID:Not on file Relation to Subscriber:Not on file Name:ARIES PAZ Subscriber ID:Not on file (Home) Address: [address] [place] [id number] Payer ID:Not on file Group ID:Not on file Type:Self Pay Address: [place], [place] Care Teams Blacksmith Apprentice Relationship Specialty Start Date End Date Sigifredo Cuevas MD [address] [place] [address] PCP - General 12/21/17
--- OUTSIDE RECORDS SUMMARY | 2024-11-07 12:21 | XMS_ITS | Clinical Summary ---
Author Organization [facility] Address [address] [place] [address] Care Team Providers Care Timber Sizer Operator Name Role Phone Unavailable Primary Care Provider Unavailabl e Social History Tobacco Use Types Packs/Day Years Used Date Smoking Tobacco: Never Assessed Sex and Gender Information Value Date Recorded Sex Assigned at Not on file Legal Sex Male 2:52 PM CDT Gender Identity Not on file Sexual Orientation Not on file Plan of Treatment Upcoming Encounters Date Type Department Care Team (Late st Contact Info) Description 12/05/2024 10:30 AM CDT Office Visit [facility] Oncology and Hematology - Rj [address] [place] [address] Guillermina Putnam MD [address] [place] [address] Health Maintenance Due Date Last Done Comments DTAP/TDAP/TD VACCINES (1 - Tdap) 06/05/1971 COLORECTAL SCREENING 1997 Colorectal Cancer Screening 1997 FIT-DNA Q 3 years 1997 FIT/FOBT Q 1 year 1997 Flex Sig/CT Colonography Q 5 years 1997 PNEUMOCOCCAL VACCINE 50+ YEARS (1 of 1 - PCV) 06/05/19 03 ZOSTER VACCINE (1 of 2) 2002 INFLUENZA VACCINE (#1) 2024 RSV VACCINE (60+ or ) (1 - 1-dose 75+ series) 06/05/2027 Insurance [employer] MEDICARE SUPP MEDICARE PART A AND B
== END 2024-11-07 11:34 | disposition home or self-care (01) ==
PROVIDERS: PCP Family Medicine; Visit Provider Physician Assistant Medical
DX: J44.9 Chronic obstructive pulmonary disease, unspecified (principal)
CPT/HCPCS: 71046

== ENCOUNTER 2024-12-05 11:54 | Outpatient (CLI) | payer MEDICARE, SELFPAY ==
--- OUTSIDE RECORDS SUMMARY | 2024-12-05 10:30 | XMS_ITS | Encounter Summary ---
Author Organization [facility] Address [address] [place] [address] Care Team Providers Care Belly Dump Driver Name Role Phone Unavailable Primary Care Provider Unavailabl e Reason for Referral * Laboratory Services (Routine) - Open Specialty Diagnoses / Procedures Referred By Tashi russo Referred To Contact Diagnoses Erythrocytosis Procedures JAK2 MUTATION Guillermina Putnam MD [address] [place] [address] Phone: tel: fax: Referral ID Status Reason Start Date Expiration Date Visits Re quested Visits Authorized [id number] Open 12/05/2024 01/05/2026 1 1 Reason for Visit * Reason Comments Establish Care Encounter Details Date Type Department Care Team (Late st Contact Info) Description 12/05/2024 10:30 AM CDT Office Visit [facility] Oncology and Hematology - Rj [address] [place] [address] Guillermina Putnam MD [address] [place] [address] Erythrocytosis (Primary Dx) Social History Tobacco Use Types Packs/Day Years Used Date Smoking Tobacco: Every Day Cigarettes 1 45 Started: 12/06/1979 Smokeless Tobacco: Never Tobacco Cessation:Ready to Q uit: Not Asked; Counseling Given: Not Answered Alcohol Use Standard Drinks/Week Comments Yes 0 (1 standard drink = 0.6 oz pur e alcohol) Occasionally Sex and Gender Information Value Date Recorded Sex Assigned at Not on file Legal Sex Male 2:52 PM CDT Gender Identity Not on file Sexual Orientation Not on file documented as of this encounter Last Filed Vital Signs Vital Sign Reading Time Taken Comments Blood Pressure 126/78 12/05/2024 10:51 AM CDT Pulse 66 12/05/2024 10:51 AM CDT Temperature 36.6 C (97.9 F) 12/05/2024 10:51 AM CDT Respiratory Rate 16 12/05/2024 10:51 AM CDT Oxygen Saturation 91% 12/05/2024 10:51 AM CDT Inhaled Oxygen Concentration - - Weight 95.3 kg (210 lb 3.2 oz) 12/05/2024 10:51 AM CDT Height 177.8 cm (5' 10) 12/05/2024 10:51 AM CDT Body Mass Index 30.16 12/05/2024 10:51 AM CDT documented in this encounter Progress Notes * Guillermina Putnam MD - 12/05/2024 11:17 AM CDT Hematology-oncology consult Note Requesting Physician Dr. Sigifredo Cuevas Primary Care Physician Dr. Sigifredo Cuevas Problem list Elevated hemoglobin ? Reason for Visit Carlos Ruiz is a 74 y.o. male who was referred for consultation for elevated hemoglobin. History of present illness Patient is a 74-year-old male who presented to hematology clinic as a new patient on 12/05/2024 for further management of erythrocytosis. Patient's labs are below- 08/24/2024-WBC 6.8, hemoglobin 18.3, hematocrit 55.9, platelets 178,000, AST 14, ALT 13, creatinine 0.91 10/26/2023-WBC 16.4, hemoglobin 17.6, hematocrit 53.5, platelets 181,000. 07/28/2023-WBC 6.0, hemoglobin 16, hematocrit 47.3, platelets 143,000 10/24/2021-WBC 7, hemoglobin 16.8, hematocrit 50.3, platelets 188,000 Patient is a chronic smoker smoking and states that he is cutting his smoking , now smokes 5 - 6 cigarettes/day. He denies sleep apnea. Patient reports that he has chronic fatigue and needs nap during the day. He has no history of arterial or venous thrombosis including no strokes, TIA, lower extremity blood clots. Patient denies any testosterone or steroid use. Past Medical History Past Medical History: Diagnosis Date Diabetes mellitus (CMS/HCC) Hyperlipidemia Hypertension Surgical History Past Surgical History: Procedure Laterality Date HX PROSTATE SURGERY HX SINUS SURGERY Medications Current Outpatient Medications Medication Sig Dispense Refill Farxiga 10 mg Tablet Take 10 mg by mouth daily in the morning. Trelegy Ellipta 100-62.5-25 mcg Disk with Device Take 1 Puff by inhalation daily. lisinopril-hydroCHLOROthiazide (ZESTORETIC) 20-25 mg tablet Take 1 Tablet by mouth daily. metFORMIN (GLUCOPHAGE XR) 500 mg Extended Release 24 hour tablet Take 500 mg by mouth. traZODone (DESYREL) 100 mg tablet Take 100 mg by mouth daily at bedtime. No current facility-administered medications for this visit. Allergies No Known Allergies Immunizations: There is no immunization history on file for this patient. Family History Family History Problem Relation Name Age of Onset Diabetes Father No Known Problems Mother No Known Problems Brother Social History Social History Tobacco Use Smoking status: Every Day Current packs/day: 0.50 Average packs/day: 1 pack/day for 45.0 years (43.5 ttl pk-yrs) Types: Cigarettes Start date: 12/06/1979 Smokeless tobacco: Never Substance Use Topics Alcohol use: Yes Comment: Occasionally Review of Systems Constitutional: Patient did not mention fever; no night sweats; no anorexia; no weight loss; reports fatigue NEENT: Patient did not mention headache; no change in vision; no change in hearing; no sore throat;no dysphagia Respiratory: Patient did not mention shortness of breath; no pleuritic chest pain; no cough; no hemoptysis Cardiac: Patient did not mention cardiac-like chest pain; no palpitations; no orthopnea; no PND; noDOE GI: Patient did not mention abdominal pain; no nausea; no vomiting; no diarrhea; no hematochezia; no melena : Patient did not mention dysuria; no frequency; no hesitancy; no hematuria Musculosketetal: Patient did not mention bone pain; no arthralgia; no joint swelling; no myalgia; Skin: Patient did not mention pruritis; no rash; no petechiae; no ecchymoses Endocrine: Patient did not mention polydipsia; no polyuria; no unusual weight gain Neuro: Patient did not mention headache; no change in vision; no sensory changes; no muscle weakness; no confusion; no seizures Psych: Patient did not mention anxiety; no depression; Physical Exam Vitals: As per nursing note Constitutional: Well developed, well nourished, no acute distress, non-toxic appearance Teeth and gum. No signs of infection or swelling. Eyes: PERRL, conjunctiva normal HEENT: Atraumatic, external ears normal, nose normal, oropharynx moist, no pharyngeal exudates. no sinus tenderness Neck- normal range of motion, no tenderness, supple Respiratory: No respiratory distress, normal breath sounds, no rales, no wheezing Breasts: Symmetric, No masses, No nipple discharge. Cardiovascular: Normal rate, normal rhythm, no murmurs, no gallops, no rubs GI: Soft, nondistended, normal bowel sounds, nontender, no splenomegaly, no hepatomegaly, no mass, no rebound, no guarding : No costovertebral angle tenderness Lymphatic: No lymphadenopathy noted Neurologic: Alert & oriented x 3, CN 2-12 normal, normal motor function, normal sensory function, no focal deficits noted Psychiatric: Speech and behavior appropriate ? labs 08/24/2024-WBC 6.8, hemoglobin 18.3, hematocrit 55.9, platelets 178,000, AST 14, ALT 13, creatinine 0.91 10/26/2023-WBC 16.4, hemoglobin 17.6, hematocrit 53.5, platelets 181,000. 07/28/2023-WBC 6.0, hemoglobin 16, hematocrit 47.3, platelets 143,000 10/24/2021-WBC 7, hemoglobin 16.8, hematocrit 50.3, platelets 188,000 Performance Status?ECOG 1 Assessment / Plan: This is a 74-year-old male with- Erythrocytosis-patient with erythrocytosis present since September 2021. Patient is a chronic smoker Maximiliano believe this is reactive/secondary polycythemia. However I am getting JAK2 mutation analysis and erythropoietin levels to rule out primary polycythemia. I am also getting ESR and CRP levels as wellas repeating CBC. I counseled patient on cessation of smoking and patient states that he will work o n it. Patient will talk to Dr. Cary in 4 weeks via phone visit to discuss the results of the blood workobtained today. Patient will also benefit from aspirin 81 mg daily. TOBACCO COUNSELING He was counseled to discontinue tobacco/nicotine use. Guillermina Putnam MD ,12/05/2024 11:17 AM ? Total time spent 60 minutes, two third of the total time spent counseling patient [id number]. CC:? documented in this encounter Plan of Treatment Upcoming Encounters Date Type Department Care Team (Late st Contact Info) Description 01/03/2025 4:35 PM CDT Telephone Check Up [facility] Oncology and Hematology - [place] [address] [facility] [address] [place] [address] Jered Cary MD [address] [place] [address] Scheduled Orders Name Type Priority Associated Diagnoses Orde r Schedule CBC WITHOUT DIFFERENTIAL Lab Stat Erythrocytosis Expected: 12/05/2024, Expires: 12/05/2025 COMPREHENSIVE METABOLIC PANEL Lab Stat Erythrocytosis Expected: 12/05/2024, Expires: 12/05/2025 ERYTHROPOIETIN LEVEL Lab Routine Erythrocytosis Expected: 12/05/2024, Expires: 12/05/2025 IRON, TIBC, AND PERCENT SATURATION Lab Routine Erythrocytosis Expected: 12/05/2024, Expires: 12/05/2025 FERRITIN Lab Routine Erythrocytosis Expected: 12/05/2024, Expires: 12/05/2025 JAK2 MUTATION Lab Routine Erythrocytosis Expected: 12/05/2024, Expires: 12/05/2025 SEDIMENTATION RATE Lab Routine Erythrocytosis Expected: 12/05/2024, Expires: 12/05/2025 C-REACTIVE PROTEIN Lab Routine Erythrocytosis Expected: 12/05/2024, Expires: 12/05/2025 documented as of this encounter Visit Diagnoses Diagnosis Erythrocytosis- Primary Reserved for inherently not codable concepts WITHOUT codable children documented in this encounter
[2024-12-05 12:11] LABS: Hematocrit 55.4 % (42.0-52.0); Hemoglobin 18.6 g/dL (14.0-18.0); Mean Corpuscular HGB Conc 33.6 g/dl (32-36); Mean Corpuscular Hemoglobin 31.2 pg (26-34); Mean Corpuscular Volume 92.8 fl (80-100); Platelet Count Result 210 k/mm3 (150-375); Red Blood Count 5.97 M/mm3 (4.6-6.20); White Blood Count 7.6 K/mm3 (4.5-10.0)
[2024-12-05 13:28] LABS: Iron 85 ug/dL (49-181)
[2024-12-05 13:32] LABS: Alanine Aminotransferase 17 U/L (6-50); Albumin Level 4.3 g/dL (3.5-5.1); Alkaline Phosphatase 74 U/L (38-126); Anion Gap 8 mmol/L (4-12); Aspartate Amino Transferase 23 U/L (17-59); Bilirubin,Total 0.4 mg/dL (0.2-1.3); Blood Urea Nitrogen 18 mg/dL (9-20); CRP < 0.5 mg/dL (<1.0); Calcium 9.8 mg/dL (8.4-10.2); Carbon Dioxide 33 mmol/L (22-30); Chloride 97 mmol/L (98-107); Estimated Glomerular Filt Rate > 60; Glucose 106 mg/dL (65-110); Potassium 4.7 mmol/L (3.4-5.0); Sodium 138 mmol/L (137-145); Total Protein 7.8 g/dL (6.3-8.2)
--- OUTSIDE RECORDS SUMMARY | 2024-12-05 13:35 | XMS_ITS | Clinical Summary ---
Author Organization [facility] Address [address] [place] [address] Care Team Providers Care Aluminum Polisher Name Role Phone Sigifredo Cuevas MD Primary Care Provider [phone] Source Comments [facility],non-owned Affiliates and Associated Physician Practices is amultiple site organization consisting of ambulatory clinics and hospital sitesin [place], [place], [place] and [place]. This disclosure is being madepursuant to the Care Everywhere program and may not contain all information available regarding this patient. Last updated 17.[employer] [facility] Allergies No known active allergies Medications * [...] AAA SCREENING 2017 SCREENING FOR DIABETES 10/22/2021 DEPRESSION SCREENING 03/29/2024 COVID-19 VACCINE (1 - 2023-2 5 season) 2024 INFLUENZA VACCINE (#1) 2024 Respiratory Syncytial Virus [...] PAZ Subscriber ID:Not on file (Home) Address: [address] [place] [id number] Payer ID:Not on file Group ID:Not on file Type:Self Pay Address: [place], [place] Care Teams Aluminum Polisher Relationship Specialty Start Date End Date Sigifredo Cuevas MD [address] [place] [address] PCP - General 12/21/17
--- OUTSIDE RECORDS SUMMARY | 2024-12-05 13:35 | XMS_ITS | Clinical Summary ---
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 5 Active Trelegy Ellipta 100-62.5-25 mcg Disk with Device Take 1 Puff by inhalation daily. 5 Active lisinopril-hydr oCHLOROthiazide (ZESTORETIC) 20-25 mg tablet Take 1 Tablet by mouth daily. 5 Active metFORMIN (GLUCOPHAGE XR) 500 mg Extended Release 24 hour tablet Take 500 mg by mouth. 5 Active traZODone (DESYREL) 100 mg tablet Take 100 mg by mouth daily at bedtime. 5 Active Active Problems Problem Noted Date Diagnosed Date Erythrocytosis 12/05/2024 Encounters Date Type Department Care Team Description 12/05/2024 10:30 AM CDT Office Visit [facility] Oncology and H[facility]ology - [place] [address] [place] [address] Guillermina Putnam MD Erythrocytosis (Primary Dx) from Last 3 Months Family History Medical History Relation Name Comments No Known Problems Brother Diabetes Father No Known Problems Mother Relation Name Status Comments Brother Alive Father Mother Social History Tobacco Use Types Packs/Day Years [...] Mass Index 30.16 12/05/2024 10:51 AM CDT Plan of Treatment Upcoming Encounters Date Type Department Care Team (Late st Contact Info) Description 01/03/2025 4:35 PM CDT Telephone Check Up [facility] Oncology and Hematology - [place] [address] [facility] [address] [place] [address] Jered Cary MD [address] [place] [address] Health Maintenance Due Date Last Done Comments DIABETES ANNUAL FOOT EXAM 1970 DIABETES ANNUAL RETINAL EXAM 1970 DIABETES HBA1C Q 6 MONTHS 1970 DIABETES MICROALBUMIN ANNUAL SCREEN 1970 LDL CHOLESTEROL ANNUAL 1970 PNEUMOCOCCAL VACCINE 50+ YEA RS (1 of 2 - PCV) 06/05/1971 Traditional Medicare (ACO) A nnual Wellness Visit 06/05/1971 COLORECTAL SCREENING 1997 Colorectal Cancer Screening 1997 FIT-DNA Q 3 years 1997 FIT/FOBT Q 1 year 1997 Flex Sig/CT Colonography Q 5 years 1997 Lung Cancer Screening 2002 ZOSTER VACCINE (1 of 2) 2002 RSV VACCINE (60+ or ) (1 - Risk 60-74 years 1-dose series) 2012 Abdominal Aortic Aneurysm (A AA) Screening 2017 INFLUENZA VACCINE (#1) 2024 , 02/17/2022, 12/19/2020, Additional history exists DTAP/TDAP/TD VACCINES (2 - T d or Tdap) 01/07/2027 01/07/2017 Insurance [employer] SUPP MEDICARE PART A AND B
[2024-12-05 13:47] LABS: Percent Iron Saturation 20 % (20-50)
[2024-12-05 14:15] LABS: Ferritin 51.00 ng/mL (11.1-264)
[2024-12-12 08:09] LABS: CALR + MPL + E12-E15 YES YES
== END 2024-12-05 11:55 | disposition home or self-care (01) ==
LOC: ANHLAB 11:55
PROVIDERS: PCP Family Medicine; Visit Provider Internal Medicine Hematology & Oncology
DX: D75.1 Secondary polycythemia (principal); D64.9 Anemia, unspecified
CPT/HCPCS: 36415; 80053; 81219; 81270; 82668; 82728; 83540; 83550; 85027; 85652; 86140